=== PATIENT | male | born 1955 | race Caucasian/White ===

== ENCOUNTER → 2020-08-19 | Outpatient (CLI) | payer OTHER ==
[2020-08-19 11:36] LABS: Chol/HDL Ratio 5.29
== END | disposition home or self-care (01) ==
LOC: LABWHC1 07:23
PROVIDERS: ATTEND Family Medicine
DX: I10 Essential (primary) hypertension (principal); I34.0 Nonrheumatic mitral (valve) insufficiency; E78.2 Mixed hyperlipidemia; R06.02 Shortness of breath; R94.2 Abnormal results of pulmonary function studies; Z87.891 Personal history of nicotine dependence
CPT/HCPCS: 36415; 80061

== ENCOUNTER → 2023-11-30 | Outpatient (CLI) | payer OTHER ==
[2023-11-30 15:55] LABS: BUN/Creat Ratio 16.45 Ratio (12.00-20.00); Blood Urea Nitrogen 18.1 mg/dL (9.0-27.0); Calcium 9.3 mg/dL (8.7-10.3); Carbon Dioxide 23.5 mmol/L (21.6-31.8); Chloride 104 mmol/L (96-109); Glucose 95 mg/dL (70-110); Potassium 4.6 mmol/L (3.5-5.5); Sodium 140 mmol/L (135-145)
[2023-11-30 16:19] LABS: Basophils # (A) 0.11 X 10*3/uL (0.00-0.10); Basophils % (A) 1.1 %; Eosinophils # (A) 0.51 X 10*3/uL (0.04-0.35); Eosinophils % (A) 5.3 %; HCT 47.8 % (39.6-50.0); HGB 16.1 g/dL (13.0-17.0); Lymphocytes % (A) 26.8 %; MCH 32.6 pg (27.0-32.0); MCHC 33.7 g/dL (32.0-37.0); MCV 96.8 FL (80.0-97.0); Mean Platelet Volume 9.2 FL (9.5-12.2); Monocytes # (A) 0.94 X 10*3/uL (0.20-1.00); Monocytes % (A) 9.7 %; NRBC Per 100 WBC 0 X 10*3/uL (0.00-0.01); Neutrophils # (A) 5.44 X 10*3/uL (1.80-7.70); Neutrophils % (A) 56.2 %; Platelet Count 278 X 10*3/uL (140-440); RBC 4.94 X 10*6/uL (4.40-5.60); RDW 12.6 % (11.5-14.5); WBC 9.69 X 10*3/uL (4.50-10.00)
== END | disposition home or self-care (01) ==
LOC: LABPAT 10:49
PROVIDERS: ATTEND Urology
DX: Z01.818 Encounter for other preprocedural examination (principal); I11.9 Hypertensive heart disease without heart failure; D41.01 Neoplasm of uncertain behavior of right kidney
CPT/HCPCS: 80048; 85025; 86850; 86900; 86901; 93005

== ENCOUNTER 2023-12-08 05:42 | Inpatient (IN) | payer OTHER ==
[~2023-12-08 05:42] MED LIST: droPERidol 5 MG/2 ML VIAL IVP PRN
--- NOTE | 2023-12-08 06:10 | P.HPIHPCON ---
History of Present Illness H&P Date: 12/08/23 Chief Complaint: Right renal mass This is a 68-year-old male with history of 5.7 cm right-sided upper pole renal mass. Mass was found incidentally. Discussed with him that it is not amenable to a partial nephrectomy. Option of a robotic right-sided radical nephrectomy was discussed with him. Aware the risk which includes but not limited to bleeding, infection, injury to nearby organs. Discussed potential of the need for hemodialysis in the short and long-term. Risk of anesthesia was also discussed with him in details. Discussed the need for continued postoperative surveillance, and potential of needing additional treatments and cancer recurrence. Discussed also potential that this could be had benign pathology. He understood all the risk and agreed to proceed with a robotic right-sided radical nephrectomy Consent for Procedure: I have explained the operation/procedure to the patient, including the risks, benefits, side effects, alternative therapies (including not receiving the proposed treatment or service), the likelihood of the patient achieving his/her goals, and potential recuperation problems for the procedure/sedation/analgesia, as well as any blood products, if indicated. I also explained to the patient the risks, benefits and side effects of the alternatives, as well as the risks related to not receiving the proposed procedure, care, treatment, or services. Past Medical History Past Medical History: Chest Pain / Angina, Hyperlipidemia, Hypertension, Osteoarthritis (OA) Additional Past Medical History / Comment(s): Rt. kidney mass, colon polyps History of Any Multi-Drug Resistant Organisms: None Reported Past Surgical History: Heart Catheterization Additional Past Surgical History / Comment(s): cyst removed from upper back, biopsy back mole, heart cath 25 yrs. ago, colonoscopy x 3 Past Anesthesia/Blood Transfusion Reactions: No Reported Reaction Smoking Status: Current every day smoker - Past Family History Sister(s) Family Medical History: Cancer Additional Family Medical History / Comment(s): breast cancer Mother Family Medical History: Cancer, Hyperlipidemia Additional Family Medical History / Comment(s): ovarian cancer. CABG. maternal grandfather - prostate cancer Father Family Medical History: Hyperlipidemia Additional Family Medical History / Comment(s): CABG Medications and Allergies Home Medications Medication Instructions Recorded Confirmed Type Ergocalciferol [Vitamin D2 (1250 1 tab PO Q7D 12/05/23 12/05/23 History Mcg = 51265 Iu)] Ibuprofen [Advil] 400 mg PO BID 12/05/23 12/05/23 History Lovastatin [Mevacor] 40 mg PO HS 12/05/23 12/05/23 History Ranolazine [Ranolazine ER] 500 mg PO Q12HR 12/05/23 12/05/23 History amLODIPine BESYLATE 10 mg PO HS 12/05/23 12/05/23 History lisinopriL 40 mg PO HS 12/05/23 12/05/23 History Allergies Allergy/AdvReac Type Severity Reaction Status Date / Time No Known Allergies Allergy Verified 12/05/23 08:54 Surgical - Exam - General no distress, no pain - Respiratory normal expansion, normal respiratory effort - Psychiatric oriented to time, oriented to person, oriented to place Assessment and Plan Assessment: OR for right-sided robotic radical nephrectomy
[2023-12-08] MEDS: LACTATED RINGERS 1,000 ML BAG IV STA (06:45)
[2023-12-08] MEDS: ONDANSETRON 4 MG/2 ML VIAL IVP ONE (06:45)
[2023-12-08] MEDS: IV FLUID CONTINUATION 1,000 ML IV ONE ×2 (06:45→06:47)
[2023-12-08] MEDS: LACTATED RINGERS 1,000 ML IV SCH (06:47)
[2023-12-08] MEDS: DEXAMETHASONE SOD PHOSPHATE 4 MG/ML 1 ML VIAL IV ONE (06:47)
[2023-12-08] MEDS: LIDOCAINE 1% (10MG/ML) FOR IV START INTRADERMA PRN (06:47)
[2023-12-08] MEDS: fentaNYL (PF) 50 MCG/ML 2 ML AMP IVP PRN (07:11)
[2023-12-08] MEDS: MIDAZOLAM 2 MG/2 ML VIAL IV ONE (07:11)
--- NOTE | 2023-12-08 07:23 | P.ANPRN ---
Procedure Note - Anesthesia - Nerve Block Performed Bilateral Erector Spinae Single Time Out Performed: Yes Date of Procedure: 12/08/23 Procedure Start Time: :11 Procedure Stop Time: :19 Location of Patient: PreOp Indication: Acute Post-Operative Pain, Requested by Surgeon Sedation Type: Sedate with meaningful contact maintained Preparation: Sterile Prep Position: Prone Needle Types: Pajunk Needle Gauge: 21 Ultrasound used to visualize needle placement: Yes Ultrasound used to observe medication spread: Yes Injectate: 0.5% Ropivacaine (see comment for volume) (20 ml + 10 ml NS + 4 mg Dexamethasone per side) Blood Aspirated: No Pain Paresthesia on Injection Noted: No Resistance on Injection: Normal Image Stored and Saved: Yes Events: Uneventful and Well Tolerated
[2023-12-08] MEDS ORDERED: GLYCOPYRROLATE 0.2 MG/ML 2 ML VIAL ONE (07:26)
[2023-12-08] MEDS ORDERED: ePHEDrine 50 MG/ML 1 ML VIAL ONE (07:26)
[2023-12-08] MEDS ORDERED: NEOSTIGMINE 1 MG/ML 10 ML VIAL ONE (07:26)
[2023-12-08] MEDS ORDERED: SODIUM CHLORIDE 0.9% (PF) 10 ML VIAL ONE (07:26)
[2023-12-08] MEDS ORDERED: DEXAMETHASONE SOD PHOSPHATE 4 MG/ML 1 ML VIAL ONE (07:26)
[2023-12-08] MEDS ORDERED: PHENYLEPHRINE 10 MG/ML VIAL ONE (07:26)
[2023-12-08] MEDS ORDERED: SUCCINYLCHOLINE CHLORIDE 200 MG/10 ML VIAL IV ONE (07:26)
[2023-12-08] MEDS ORDERED: ROCURONIUM 10 MG/ML (5 ML VIAL) IV ONE (07:26)
[2023-12-08] MEDS ORDERED: fentaNYL (PF) 50 MCG/ML 2 ML AMP ONE (07:26)
[2023-12-08] MEDS ORDERED: PROPOFOL 10 MG/ML 20 ML VIAL IV ONE (07:26)
[2023-12-08] MEDS ORDERED: LIDOCAINE 1% INJ 10MG/ML (20 ML MDV) ONE (07:26)
[2023-12-08] MEDS ORDERED: ROPIVACAINE 5 MG/ML 30 ML VIAL ONE (07:26)
[2023-12-08] MEDS: BUPIVACAINE (PF) 0.5% 30 ML VIAL SQ ONE (08:44)
[2023-12-08] MEDS ORDERED: HYDROmorphone 1 MG/ML 1 ML SYRINGE IVP PRN (09:41)
[2023-12-08] MEDS ORDERED: ONDANSETRON 4 MG/2 ML VIAL IVP PRN (09:41)
[2023-12-08] MEDS ORDERED: HYDROcodone/APAP 5-325MG 1 EACH TAB PO PRN (09:45)
--- NOTE | 2023-12-08 09:49 | P.OP ---
Date of Procedure: 12/08/23 Preoperative Diagnosis: Right renal mass Postoperative Diagnosis: Same Procedure(s) Performed: Robotic assisted laparoscopic right-sided radical nephrectomy Implants: None Anesthesia: MARYA Surgeon: Zachery Lugo Estimated Blood Loss (ml): 25 Pathology: other (Right-sided renal mass) Condition: stable Disposition: PACU Indications for Procedure: This is a 68-year-old male with history of 5.7 cm right-sided upper pole renal mass. Mass was found incidentally. Discussed with him that it is not amenable to a partial nephrectomy. Option of a robotic right-sided radical nephrectomy was discussed with him. Aware the risk which includes but not limited to bleeding, infection, injury to nearby organs. Discussed potential of the need for hemodialysis in the short and long-term. Risk of anesthesia was also discussed with him in details. Discussed the need for continued postoperative surveillance, and potential of needing additional treatments and cancer recurrence. Discussed also potential that this could be had benign pathology. He understood all the risk and agreed to proceed with a robotic right-sided radical nephrectom Description of Procedure: The patient was taken to the operating room . General anesthesia was induced. He was prepped and draped in sterile fashion, and was placed in modified flank position . All pressure points were padded. The abdominal insufflation was achieved with the Veress needle. A 8 mm camera port was placed. Robotic trocars and lpn medical assistant ports were placed under direct vision. a 5 mm liver retractor was placed. . The robot was docked into place. The colon was mobilized medially by incising along the white line of Toldt. Next the duodenum was kocherized. At this time the vena cava was exposed. Next the ureter was retracted anteriorly off the psoas muscle. Dissection proceeded cranially towards the renal hilum. The upper pole attachments were dissected. Care was taken to safely mobilize the kidney free of all visceral structures.The renal vessels were dissected. At this point the renal vessels were exposed. Next the renal hilum was ligated using the vascular stapler. The adrenal gland was mobilized. Lateral and remaining kidney attachments were released. The ureter was dissected further distally, the ureter was clipped and ligated. The kidney was placed in an Endo Catch bag. Hemostatic agent were applied to the surgical field. The robot was then de-docked and the specimen was then removed by extending the lpn medical assistant port. Fascia was closed with one layer using #1 PDS. Skin was closed with subcuticular sutures and dermabond. The patient was awoken from general anesthesia in stable condition. Please refer to the final pathology report for final diagnosis
[2023-12-08] MEDS: HYDROmorphone 0.5 MG/0.5 ML SYRINGE IVP PRN (14:06)
[2023-12-08] MEDS: KETOROLAC 15 MG/ML 1 ML VIAL IVP SCH (15:17)
[2023-12-08] MEDS: DEXTROSE 5%-0.45% NACL 1,000 ML IV SCH (15:18)
[2023-12-08] MEDS: HEPARIN SODIUM,PORCINE 5,000 UNIT/ML 1 ML VIAL SQ SCH (17:08)
[2023-12-08] MEDS: amLODIPine 10 MG TAB PO SCH (19:52)
[2023-12-08] MEDS: lisinopriL 20 MG TAB PO SCH (19:52)
[2023-12-08] MEDS: RANOLAZINE 500 MG TAB.ER.12H PO SCH (19:52)
[2023-12-08] MEDS: ATORVASTATIN 10 MG TAB PO SCH (19:52)
[2023-12-09 08:34] LABS: HCT 38.1 % (39.6-50.0); MCH 32.9 pg (27.0-32.0); MCHC 34.1 g/dL (32.0-37.0); MCV 96.5 FL (80.0-97.0); Mean Platelet Volume 9.6 FL (9.5-12.2); NRBC Per 100 WBC 0 X 10*3/uL (0.00-0.01); Platelet Count 242 X 10*3/uL (140-440); RBC 3.95 X 10*6/uL (4.40-5.60); RDW 12.7 % (11.5-14.5); WBC 16.37 X 10*3/uL (4.50-10.00)
[2023-12-09 08:35] VITALS: BP 112/56; PULSE 60; RESP 18; TEMP 98.3
[2023-12-09 08:53] LABS: Blood Urea Nitrogen 17.6 mg/dL (9.0-27.0); Calcium 8.6 mg/dL (8.7-10.3); Chloride 108 mmol/L (96-109); Glucose 139 mg/dL (70-110); Potassium 4.5 mmol/L (3.5-5.5); Sodium 139 mmol/L (135-145)
[2023-12-09 10:38] LABS: Basophils # (A) 0.02 X 10*3/uL (0.00-0.10); Basophils % (A) 0.1 %; Eosinophils # (A) 0 X 10*3/uL (0.04-0.35); Eosinophils % (A) 0 %; Lymphocytes # (A) 1.41 X 10*3/uL (0.90-5.00); Lymphocytes % (A) 8.6 %; Monocytes # (A) 1.76 X 10*3/uL (0.20-1.00); Monocytes % (A) 10.8 %; Neutrophils # (A) 13.08 X 10*3/uL (1.80-7.70); Neutrophils % (A) 79.9 %; RBC Morphology Normal (Normal)
--- NOTE | 2023-12-11 11:16 | P.DS ---
Providers Date of admission: 12/08/23 05:42 Expected date of discharge: 12/09/23 Attending physician: Zachery Lugo MD Primary care physician: Stated None Hospital Course: On the day of admission, the patient underwent an uncomplicated a robotic assisted laparoscopic right radical nephrectomy. The perioperative course was unremarkable. The patient remained afebrile with stable vital signs throughout the perioperative course. On the first postoperative day, he reported minimal incisional discomfort and was otherwise feeling well. He was tolerating diet. His Kraft catheter had been removed and he was voiding without difficulty. Procedures: Robotic-Assisted Laparoscopic Right Radical Nephrectomy on December 08, 2023. Patient Condition at Discharge: Good Plan - Discharge Summary Discharge Rx Participant: Yes New Discharge Prescriptions: New Ketorolac [Toradol] 10 mg PO Q6HR PRN #10 tab PRN Reason: Pain No Action lisinopriL 40 mg PO HS amLODIPine BESYLATE 10 mg PO HS Ranolazine [Ranolazine ER] 500 mg PO Q12HR Lovastatin [Mevacor] 40 mg PO HS Ibuprofen [Advil] 400 mg PO BID Ergocalciferol [Vitamin D2 (1250 Mcg = 15154 Iu)] 1 tab PO Q7D Discharge Medication List Ergocalciferol [Vitamin D2 (1250 Mcg = 63750 Iu)] 1 tab PO Q7D 12/05/23 [History] Ibuprofen [Advil] 400 mg PO BID 12/05/23 [History] Lovastatin [Mevacor] 40 mg PO HS 12/05/23 [History] Ranolazine [Ranolazine ER] 500 mg PO Q12HR 12/05/23 [History] amLODIPine BESYLATE 10 mg PO HS 12/05/23 [History] lisinopriL 40 mg PO HS 12/05/23 [History] Ketorolac [Toradol] 10 mg PO Q6HR PRN #10 tab 12/09/23 [Rx] Follow up Appointment(s)/Referral(s): Zachery Lugo MD [STAFF PHYSICIAN] - 12/19/23 9:00 am Patient Instructions/Handouts: Ketorolac (By mouth), Surgical Site Infections (DC), Laparoscopic Radical Nephrectomy (DC) Activity/Diet/Wound Care/Special Instructions: Diet as tolerated. No lifting or strenuous activity. OK to shower 12/10/2023. Discharge Disposition: HOME SELF-CARE
--- NOTE | 2023-12-13 14:10 | CDI ---
Documentation Clarification Form Date: 12/13/2023 02:00:21 PM From: Sharmaine Arango Phone: Admit Date: 12/08/2023 05:42:00 AM Patient Name: Jimmy Toledo Visit Number: [id number] Discharge Date: 12/09/2023 12:23:00 PM ATTENTION: The Clinical Documentation Specialists (CDI) and [facility] Coding Staff appreciate your assistance in clarifying documentation. Please respond to the clarification below the line at the bottom and electronically sign. The CDI & [facility] Coding staff will review the response and follow-up if needed. Please note: Queries are made part of the Legal Health Record. If you have any questions, please contact the author of this message via ITS. Doctor/Provider: Zachery Lugo The final diagnosis of the pathology report states Upper pole Clear cellrenal cell carcinoma. Coding guidelines do not allow coding professionals to code based on pathology results; therefore, clarification is requested. History/risk factors: 68yo M, Rightrenal mass, HTN, HLD, FHxprostate cancer, smoker Clinical Indicators: SPECIMEN LATERALITY: Right, Unifocal, Upper pole 6 x 5.5 x 5.5 cm Clear cellrenal cell carcinoma; G2, nucleoli conspicuous and visible at 400x magnification, not prominent at 100x magnification. Limited to kidney. Sarcomatoid or rhabdoid features not identified. Tumor Necrosis: Present, focal. Invasion: Not identified. All marginsnegative forinvasivecarcinoma. Noregional lymphnodessubmitted or found. Distant sites involved:Not applicable Treatment: Robotic assistedlaparoscopicright-sidedradical nephrectomy Please clarify if you agree with the pathology report diagnosis of malignant neoplasm of right kidney, except renal pelvis: [X ] Yes [ ] No [ ] Other (please specify) [ ] Unable to determine (Template Last Revised: July 2020) MTDD
== END 2023-12-09 12:23 | disposition home or self-care (01) | DRG 658 ==
LOC: 2ORMAIN 05:42 → 5NMEDONC 14:17
PROVIDERS: ADMIT Urology; ATTEND Urology
PROC: 8E0W4CZ Robotic Assisted Procedure of Trunk Region, Percutaneous Endoscopic Approach (ICD-10-PCS; 2023-12-08)
PROC: 0TT04ZZ Resection of Right Kidney, Percutaneous Endoscopic Approach (ICD-10-PCS; principal; 2023-12-08 07:30)
DX: C64.1 Malignant neoplasm of right kidney, except renal pelvis (principal); I10 Essential (primary) hypertension; E78.5 Hyperlipidemia, unspecified; F17.210 Nicotine dependence, cigarettes, uncomplicated; Z87.19 Personal history of other diseases of the digestive system; Z87.2 Personal history of diseases of the skin and subcutaneous tissue; Z80.42 Family history of malignant neoplasm of prostate; Z80.3 Family history of malignant neoplasm of breast; Z79.1 Long term (current) use of non-steroidal anti-inflammatories (NSAID); Z79.899 Other long term (current) drug therapy
CPT/HCPCS: 64999; 80048; 85025; 88307

== ENCOUNTER → 2024-06-11 | Outpatient (CLI) | payer OTHER ==
--- NOTE | 2024-06-11 12:43 | XR ---
EXAMINATION TYPE: XR chest 2V DATE OF EXAM: 06/11/2024 12:36 PM COMPARISON: None. CLINICAL INDICATION: Male, 69 years old with history of C64.1 MALIGNANT NEOPLASM OF RIGHT KIDNEY, EXC EPT R, TECHNIQUE: Frontal and lateral views of the chest are obtained. FINDINGS: There is no focal air space opacity, pleural effusion, or pneumothorax seen. The cardiac silhouette size is within normal limits. The osseous structures are intact. IMPRESSION: No acute cardiopulmonary process. [facility], , 06/11/2024 12:41 PM
[2024-06-11 12:55] LABS: African American GFR (CKD) 53 (>60 ml/min/1.73 sqM); Blood Urea Nitrogen 22 mg/dL (9-20); Non-African American GFR(CKD) 46 (>60 ml/min/1.73 sqM)
--- NOTE | 2024-06-11 16:04 | CT ---
EXAMINATION TYPE: CT abdomen wo/w con CT DLP: 842.70 mGycm, Automated exposure control for dose reduction was used. DATE OF EXAM: 06/11/2024 2:23 PM COMPARISON: None available. CLINICAL INDICATION:Male, 69 years old with history of C64.1 MALIGNANT NEOPLASM OF RIGHT KIDNEY, EXCE PT R; f/u RT kidney ca with nephrectomy TECHNIQUE: Standard CT of the abdomen before and after the uneventful administration of 100 cc of I sovue-300 intravenously. Oral contrast was administered. Coronal and sagittal reformats were performe d. FINDINGS: LOWER CHEST: Visualized lung bases are clear. Coronary artery calcifications. Aortic valvular calcifi cations. ABDOMEN LIVER: Unremarkable GALLBLADDER AND BILE DUCTS: Unremarkable. PANCREAS: Unremarkable. SPLEEN: Unremarkable. ADRENAL GLANDS: Unremarkable. KIDNEYS AND URETERS: Postsurgical changes from right nephrectomy without suspicious soft tissue withi n the nephrectomy bed. No hydronephrosis or renal calculi. Left inferior pole cortical 1.1 cm cyst. N o suspicious enhancing left renal lesion. Contrast is demonstrated within the collecting system on th e delayed phase. STOMACH AND BOWEL: Stomach and duodenum are unremarkable. Enteric contrast reaches the splenic flexur e. No focal bowel wall thickening or surrounding inflammatory changes identified. No evidence of rayray l obstruction. PERITONEUM: No evidence of pneumoperitoneum or free fluid. VASCULATURE: Mild to moderate atherosclerotic calcifications are present throughout the abdominal aor ta and its branches. No evidence of aortic aneurysm. Fusiform infrarenal abdominal aortic ectasia sully suring up to 2.9 cm. MUSCULOSKELETAL: No acute osseous abnormalities. No aggressive osseous lesion. Multilevel anterior os teophytosis. LYMPH NODES: No evidence for lymphadenopathy. SOFT TISSUE/ABDOMINAL WALL: Postsurgical changes within the midline ventral abdominal wall. No visual ized fluid collection. IMPRESSION: Postsurgical changes from right nephrectomy without evidence for local recurrence or metastasis withi n the visualized abdomen. [facility], , 06/11/2024 4:02 PM
== END | disposition home or self-care (01) ==
LOC: RADCTMAIN 12:09
PROVIDERS: ATTEND Urology
DX: C64.1 Malignant neoplasm of right kidney, except renal pelvis (principal); Z90.5 Acquired absence of kidney; Z85.528 Personal history of other malignant neoplasm of kidney
CPT/HCPCS: 82565; 84520; 71046; 74170; 36415; Q9967